=== PATIENT | male | born 2000 | race Caucasian/White ===

== ENCOUNTER 2022-05-28 09:04 | Emergency (ER) | payer BC, SELFPAY ==
[2022-05-28 09:14] VITALS: BP 119/85; PULSE 100; RESP 16; TEMP 37.1; O2SAT 98
--- NOTE | 2022-05-28 09:23 | ED.URI ---
HPI - URI/Sore Throat General Chief Complaint: Upper Respiratory Infection Stated Complaint: sore throat, sinus congestion,lt ear pressure Time Seen by Provider: 05/28/22 09:17 Source: patient Mode of arrival: ambulatory Limitations: no limitations History of Present Illness HPI Narrative: Patient presents today complaining 4 day history of sore throat with rhinorrhea, congestion, headache, left ear pressure since yesterday. Denies fever cough. He has been taking Mucinex and an allergy pill, which has been provided some mild relief. He currently rates his pain 3/10. Related Data Home Medications Medication Instructions Recorded Confirmed No Home Medications 05/28/22 05/28/22 Allergies Allergy/AdvReac Type Severity Reaction Status Date / Time No Known Allergies Allergy Mild Verified 05/28/22 09:14 Review of Systems Review of Systems: CONSTITUTIONAL: Denies body aches, fever, chills, or sweats. EYES: Denies visual changes, redness, or discharge. ENT: + rhinorrhea, congestion, sore left ear pressure CARDIOVASCULAR: Denies chest pain, palpitations, or edema. RESPIRATORY: Denies cough or dyspnea. GASTROINTESTINAL: Denies abdominal pain, nausea, vomiting, or diarrhea. GENITOURINARY: Denies dysuria or hematuria. SKIN: Denies rash, itching, or wounds. MUSCULOSKELETAL: Denies back pain, joint pain, or myalgia. NEUROLOGIC: Denies numbness, tingling, or weakness.+ headache PSYCH: Denies depression or anxiety. PMFSH Comments At time of signature, I have reviewed and agree with nursing past medical, surgical, social and family history unless otherwise noted. Please see nursing chart for further information. There is no relevant family history pertinent to the presenting complaint Exam Narrative: GENERAL: Well-appearing, well-nourished, and in no acute distress. HEAD: Normocephalic, atraumatic. EYES: EOMI. No redness or drainage. Conjunctivae normal. ENT: Mucous membranes pink and moist. Nares congested. TMs normal bilaterally with bilateral cerumen impactions. Throat normal. Uvula midline. NECK: Normal AROM. Supple. No lymphadenopathy. CHEST: No respiratory distress. Clear to auscultation. HEART: Regular rate and rhythm. No murmur appreciated. Normal peripheral pulses. EXTREMITIES: Normal range of motion. No edema. SKIN: Warm, dry, no rash. Capillary refill normal. Normal skin turgor. NEURO: No focal deficits. Alert and oriented x3. Gait steady. PSYCH: Normal affect. No signs of depression or anxiety. Course Course Level of Care: Express Care Visit Vital Signs Vital signs: Vital Signs Temperature 98.7 F 05/28/22 09:14 Pulse Rate 100 05/28/22 09:14 Respiratory Rate 16 05/28/22 09:14 Blood Pressure 119/85 05/28/22 09:14 Pulse Oximetry 98 05/28/22 09:14 Temperature 98.7 F 05/28/22 09:14 Pulse Rate 100 05/28/22 09:14 Respiratory Rate 16 05/28/22 09:14 Blood Pressure 119/85 05/28/22 09:14 Pulse Oximetry 98 05/28/22 09:14 Reviewed. Pt has been instructed to follow up with his PCP regarding his elevated blood pressure today. MDM - URI/Sore Throat MDM Narrative Medical decision making narrative: Rapid strep negative. Symptoms are likely viral. Anticipatory guidance given. No prescription indicated at this time. Differential Diagnosis Differential diagnosis: Likely upper respiratory infection, otitis media, sinusitis, viral infection, pharyngitis and other (Strep throat) Lab Data Attestation: I reviewed the patient's lab results. Labs: Strep Screen Presumptive Negative *(Reference Range: Negative)* Critical Care Time Critical Care Time Critical Care Time: No Discharge Plan Discharge Clinical Impression: Upper respiratory infection Qualifiers: URI type: unspecified URI Qualified Code(s): J06.9 - Acute upper respiratory infection, unspecified Patient Disposition: Home, Self-Care Condition:
== END 2022-05-28 09:38 | disposition home or self-care (01) ==
PROVIDERS: Emergency Provider Nurse Practitioner; PCP Family Medicine
DX: J06.9 Acute upper respiratory infection, unspecified (principal)
CPT/HCPCS: 87081; 87880; 99203; G0463

== ENCOUNTER 2022-09-20 19:48 | Emergency (ER) | payer BC, SELFPAY ==
--- NOTE | 2022-09-20 19:51 | ED.EAR ---
HPI - Ear Problem General Chief complaint: Ear Stated complaint: rt ear pain Time Seen by Provider: 09/20/22 19:51 Source: patient Mode of arrival: ambulatory Limitations: no limitations History of Present Illness HPI Narrative: 22 y/o male presented for c/o right ear pain for about 4 days. He states symptoms started after snorkeling in [place]. He used Debrox drops and had success with earwax removal. He states during flight home 2 days ago, the right ear popped during the flight and he noted water come out. He states he felt significant improvement in pain and popping sensation at that time. Today he felt the fullness and popping again so he used Debrox about 30 minutes [employer], and states the ear burned and felt like it was ?on fire. ? He continues to have popping and stinging sensation to the right ear with muffled hearing. Did currently denies pain, tinnitus, dizziness, nausea, vomiting, fevers or chills. MD Complaint: ear pain Related Data Allergies Allergy/AdvReac Type Severity Reaction Status Date / Time No Known Allergies Allergy Mild Verified 09/20/22 19:54 Review of Systems Review of Systems: CONSTITUTIONAL: Denies malaise, chills, or fever. EYES: Denies visual changes, redness, or discharge. ENT: Denies rhinorrhea, congestion, sinus pain, and sore throat. Reports ear pain CARDIOVASCULAR: Denies chest pain, palpitations, or edema. RESPIRATORY: Denies cough or dyspnea. GASTROINTESTINAL: Denies abdominal pain, nausea, vomiting, diarrhea SKIN: Denies rash or itching. MUSCULOSKELETAL: Denies myalgia. NEUROLOGIC: Denies headache. All systems reviewed & are unremarkable except as noted in HPI and below PMFSH Past Medical History Medical History (Updated 09/20/22 @ 20:14 by Yesi Benavides, ANA) No pertinent past medical history Comments At time of signature, agree with nursing past medical, surgical, social and family history. There is no relevant family history pertinent to the presenting complaint Exam Narrative: GENERAL: Well-appearing, in no acute distress. HEAD: Normocephalic EYES: PERRLA, conjunctivae clear ENT: Nares clear. Mucous membranes moist. Left TM with dried cerumen. Right canal erythematous and tender, canal is partially obstructed by the fluid which appears to be the Debrox. Visualized portion of TM is dull. no tragal tenderness. Oropharynx not erythematous without lesions. NECK: Supple. No lymphadenopathy CHEST: Unlabored respirations SKIN: Warm, dry, no rash. NEURO: Alert and oriented x3. PSYCH: Normal mood and affect Course Course Emergency Course: Patient is aware of diagnosis, understands and agrees to treatment plan. Anticipatory guidance given. Patient agrees to follow-up as directed and is aware of reasons to seek care at the emergency department. Portions of this record may have been created with voice recognition software Level of Care: Express Care Visit Vital Signs Vital signs: Reviewed Medical Decision Making MDM Narrative Medical decision making narrative: Discussed physical exam findings with patient. Large amount of fluid in the canal preventing full visualization of the TM, pt unable to tolerate removal of fluid with cotton tipped swab. Due to the tenderness and the erythema in the canal patient will be prescribed Ciprodex for OE infection. He is aware if the symptoms do not improve or worsen in the next few days he will start Augmentin. Advised supportive measures and signs/symptoms to go to the ER. Patient is appropriate for outpatient treatment and follow-up. Differential Diagnosis Differential Diagnosis: Coronavirus, strep pharyngitis, allergic rhinitis, upper respiratory tract infection, sinusitis, rhinosinusitis, nasopharyngitis, viral pharyngitis, otitis media, otitis externa, eustachian tube dysfunction, foreign body, cerumen impaction. Discharge Plan Discharge Clinical Impression: Otitis externa Patient Disposition: Home, Self-Care Co
[2022-09-20 19:53] VITALS: BP 137/94; PULSE 83; RESP 16; TEMP 36.5; O2SAT 100
== END 2022-09-20 20:08 | disposition home or self-care (01) ==
PROVIDERS: Emergency Provider Nurse Practitioner Family; PCP Family Medicine
DX: H60.91 Unspecified otitis externa, right ear (principal)
CPT/HCPCS: 99213; G0463

== ENCOUNTER 2023-03-10 12:11 | Emergency (ER) | payer BC, SELFPAY ==
[2023-03-10 12:22] VITALS: BP 117/92; PULSE 88; RESP 16; TEMP 36.8; O2SAT 100
--- NOTE | 2023-03-10 12:36 | ED.EAR ---
HPI - Ear Problem General Chief complaint: Ear Stated complaint: EARACHE Source: patient Mode of arrival: ambulatory Limitations: no limitations History of Present Illness HPI Narrative: 23-year-old male presented for complaints of left ear fullness since last night. He used debrox without improvement, but was able to remove some dark ear wax. Endorses decreased hearing/muffled to the left ear. Denies significant pain, ear drainage, tinnitus, dizziness, nausea, vomiting, fever or chills. Denies recent illness. History of tubes. Last ear infection was August. Hx cerumen impaction. MD Complaint: ear pain Related Data Allergies Allergy/AdvReac Type Severity Reaction Status Date / Time No Known Allergies Allergy Mild Verified 03/10/23 12:19 Review of Systems Review of Systems: CONSTITUTIONAL: Denies malaise, chills, or fever. EYES: Denies visual changes, redness, or discharge. ENT: Denies rhinorrhea, congestion, sinus pain, and sore throat. Reports ear fullness CARDIOVASCULAR: Denies chest pain, palpitations, or edema. RESPIRATORY: Denies cough or dyspnea. GASTROINTESTINAL: Denies abdominal pain, nausea, vomiting, diarrhea SKIN: Denies rash or itching. MUSCULOSKELETAL: Denies myalgia. NEUROLOGIC: Denies headache. All systems reviewed & are unremarkable except as noted in HPI and below PMFSH Past Medical History Medical History No pertinent past medical history Comments At time of signature, agree with nursing past medical, surgical, social and family history. There is no relevant family history pertinent to the presenting complaint Exam Narrative: GENERAL: Well-appearing, well-nourished, and in no acute distress. HEAD: Normocephalic EYES: PERRLA, conjunctivae clear ENT: Nares clear. Mucous membranes moist. Right TM pearly tse with hole at center; pt reports hx Ttubes. No erythema or drainage; Left canal with excess cerumen and erythematous canal with mild swelling. no tragal tenderness. NECK: Supple. No lymphadenopathy CHEST: Clear to auscultation, breath sounds equal. HEART: Regular rate and rhythm. No murmur heard. SKIN: Warm, dry, no rash. NEURO: Alert and oriented x3. PSYCH: Normal mood and affect Course Course Emergency Course: Patient is aware of diagnosis, understands and agrees to treatment plan. Anticipatory guidance given. Patient agrees to follow-up as directed and is aware of reasons to seek care at the emergency department. Portions of this record may have been created with voice recognition software Level of Care: Express Care Visit Vital Signs Vital signs: Vital Signs Temperature 98.3 F 03/10/23 12:22 Pulse Rate 88 03/10/23 12:22 Respiratory Rate 16 03/10/23 12:22 Blood Pressure 117/92 H 03/10/23 12:22 Pulse Oximetry 100 03/10/23 12:22 Temperature 98.3 F 03/10/23 12:22 Pulse Rate 88 03/10/23 12:22 Respiratory Rate 16 03/10/23 12:22 Blood Pressure 117/92 H 03/10/23 12:22 Pulse Oximetry 100 03/10/23 12:22 Reviewed Procedures Ear Wax Removal Left Ear: Ear Wax Removal Date: 03/10/23 Cerumenolytic Used: other (warm water, hydrogen peroxide) Results: Re-examined: cerumen removed completely TM Examination: TM(s) intact, normal appearance Ear Canal Exam: atraumatic Patient Tolerated Procedure: well and no complications Technique: ear canal irrigated Additional Comments: Pt reported mild pain initially with irrigation, which resolved with further irrigation. Reported immediate improvement in hearing when large amount of cerumen was removed. Canal appears erythematous with mild swelling. Medical Decision Making MDM Narrative Medical decision making narrative: Discussed physical exam findings, c/w cerumen impaction and mild otitis externa. Rx abx drops. Patient reported immediate and complete improvement in symptoms after irrigation. advised s
== END 2023-03-10 13:15 | disposition home or self-care (01) ==
PROVIDERS: Emergency Provider Nurse Practitioner Family; PCP Family Medicine
DX: H65.02 Acute serous otitis media, left ear (principal); H61.22 Impacted cerumen, left ear
CPT/HCPCS: 69209; 99213; A9270; G0463

== ENCOUNTER 2023-11-05 09:56 | Emergency (ER) | payer BC, SELFPAY ==
[2023-11-05 10:07] VITALS: BP 110/72; PULSE 74; RESP 16; TEMP 37; O2SAT 100
--- NOTE | 2023-11-05 10:27 | ED.EAR ---
HPI - Ear Problem General Chief complaint: Ear Stated complaint: Ear Pain Time Seen by Provider: 11/05/23 10:14 Source: patient and RN notes reviewed Mode of arrival: ambulatory Limitations: no limitations History of Present Illness HPI Narrative: Patient presents today complaining of bilateral ear, right greater than left. No pain reported. States he has had cerumen impaction in the past and believes this may be the cause of his current symptoms. Denies any additional symptoms. States he has used Debrox in the past and believes this makes his symptoms worse, so he has not tried anything at this time. Related Data Home Medications Medication Instructions Recorded Confirmed No Home Medications 10/14/23 11/05/23 Allergies Allergy/AdvReac Type Severity Reaction Status Date / Time No Known Allergies Allergy Mild Verified 11/05/23 10:19 Review of Systems Review of Systems: CONSTITUTIONAL: Denies body aches, fever, chills, or sweats. EYES: Denies visual changes, redness, or discharge. ENT: Denies rhinorrhea, congestion, sore throat, or otalgia.+ bilateral ear fullness CARDIOVASCULAR: Denies chest pain, palpitations, or edema. RESPIRATORY: Denies cough or dyspnea. GASTROINTESTINAL: Denies abdominal pain, nausea, vomiting, or diarrhea. GENITOURINARY: Denies dysuria or hematuria. SKIN: Denies rash, itching, or wounds. MUSCULOSKELETAL: Denies back pain, joint pain, or myalgia. NEUROLOGIC: Denies headache, numbness, tingling, or weakness. PSYCH: Denies depression or anxiety. [facility] Past Medical History Medical History Allergies Ear infection Surgical History Surgical History History of placement of ear tubes S/P tonsillectomy Family History Family History Father Depression Anxiety Hypertension Mother Depression Anxiety Sibling Depression Anxiety Grandparent Diabetes mellitus Social History Social History Smoking status: Never smoker Second hand tobacco smoke exposure: No Alcohol intake: current Drinks per week: 2 Substance use: never Substance use type: does not use Do You Feel Safe in your Home?: Yes Lack of Transportation: No Lack of Food: Never True Current Housing: I Have Housing Concerned About Future Housing: No Difficulty Paying Gas/Electric Bills: No Currently Unemployed: No Living arrangements: with family Occupation/Education: occupation Additional occupation/education comments: [employer] Gender identity (if verbalized by the patient): Male Comments At time of signature, I have reviewed and agree with nursing past medical, surgical, social and family history unless otherwise noted. Please see nursing chart for further information. There is no relevant family history pertinent to the presenting complaint Exam Narrative: GENERAL: Well-appearing, well-nourished, and in no acute distress. HEAD: Normocephalic, atraumatic. EYES: EOMI. No redness or drainage. Conjunctivae normal. ENT: Mucous membranes pink and moist. Nares clear. No rhinorrhea. Mild right serous effusion with small amount of cerumen in the canal. Left TM with moderate amount of cerumen in the canal. NECK: Normal AROM. CHEST: No respiratory distress. EXTREMITIES: Normal range of motion. No edema. SKIN: Warm, dry, no rash. Capillary refill normal. Normal skin turgor. NEURO: No focal deficits. Alert and oriented x3. Gait steady. PSYCH: Normal affect. No signs of depression or anxiety. Course Course Level of Care: Express Care Visit Vital Signs Vital signs: Vital Signs Temperature 98.6 F 11/05/23 10:07 Pulse Rate 74 11/05/23 10:07 Respiratory Rate 16 11/05/23 10:07 Blood Pressure 110/72
== END 2023-11-05 10:43 | disposition home or self-care (01) ==
PROVIDERS: Emergency Provider Nurse Practitioner; PCP Family Medicine
DX: H65.03 Acute serous otitis media, bilateral (principal); H61.22 Impacted cerumen, left ear
CPT/HCPCS: 69209; 99212; G0463